=== PATIENT | male | born 1960 | race African-American/Black ===

== ENCOUNTER 2016-11-06 07:04 | Day surgery (SDC) | payer OTHER ==
[~2016-11-06] VITALS: Ht 185.4 cm; Wt 140.6 kg
[~2016-11-06 07:04] MED LIST: APRESOLINE100 MG PO; CATAPRES0.3 MG PO; ERGOCALCIF50000 UNIT PO; LASIX80 MG PO; METOLAZONE5 MG PO; NABI650T PO; NORMODYNE,TRAN200 MG PO; NOVOLIN,HU100 UNITS1 SC; PRAVACHOL10 MG PO
[2016-11-06 07:32] LABS: HEMATOCRIT 28.1 % (38.0-50.0); MCH 28.4 PG (29.0-34.0); MCV 88.6 FL (86-99); MEAN PLAT.VOLUME 9.9 uM^3 (9.0-12.4); PLATELET COUNT 206 K/uL (156-360); RBC DIS.WIDTH-CV 14.8 % (11.8-14.6); RBC DIS.WIDTH-SD 48.5 % (39-53); RED BLOOD COUNT 3.17 M/uL (4.00-5.50); WHITE BLOOD COUNT 6.6 K/uL (4.1-10.2)
[2016-11-06 07:38] LABS: CHLORIDE 100 mEq/L (99-109); POTASSIUM 4.5 mEq/L (3.7-5.4); SODIUM 142 mEq/L (136-147)
[2016-11-06 07:40] LABS: GLUCOSE 109 mg/dL (70-99)
[2016-11-06 07:41] LABS: ANION GAP 18 MEQ/L (2-14)
[2016-11-06 07:44] LABS: GFR ESTIMATE (CALCULATED) 8 mL/min/
[2016-11-06 07:57] VITALS: BP 120/60
[2016-11-06 08:00] LABS: UREA NITROGEN (BUN) 117 mg/dL (9-23)
[2016-11-06 09:52] LABS: POINT-OF-CARE METER ID UU13113675; POINT-OF-CARE USER ID 515036437
[2016-11-06 10:23] VITALS: BP 167/89
[2016-11-06 11:35] VITALS: BP 166/77
== END 2016-11-06 11:45 | disposition home or self-care (01) ==
LOC: SDC 07:04
PROVIDERS: Surgery
PROC: 0WHG03Z Insertion of Infusion Device into Peritoneal Cavity, Open Approach (ICD-10-PCS; principal; 2016-11-06)
DX: I12.0 Hypertensive chronic kidney disease with stage 5 chronic kidney disease or end stage renal disease (principal); E11.22 Type 2 diabetes mellitus with diabetic chronic kidney disease; N18.6 End stage renal disease; Z99.2 Dependence on renal dialysis; Z79.4 Long term (current) use of insulin; E66.01 Morbid (severe) obesity due to excess calories; Z68.41 Body mass index [BMI] 40.0-44.9, adult
CPT/HCPCS: 80048; 82948; 85027; C1750; J0690; J2250